=== PATIENT | female | born 1945 | race Caucasian/White ===

== ENCOUNTER 2017-05-11 10:53 | Outpatient (CLI) | payer MEDICARE, MEDICAID ==
[~2017-05-11 10:53] MED LIST: ATOR20TA66 PO; BACL10TA PO; BENA20TA2 PO; CLOP75TA18 PO; COLL30OI TP; GABA-532 PO; HYDR-3686 PO; HYDR-569 PO; LACT1CAP26 PO
== END 2017-05-11 11:49 | disposition home or self-care (01) ==
LOC: WOUND CARE 10:53 → EDSTATUS 11:00 → WOUND CARE 11:49
PROVIDERS: ATTEND Surgery
DX: T87.89 Other complications of amputation stump (principal); L98.491 Non-pressure chronic ulcer of skin of other sites limited to breakdown of skin; E11.22 Type 2 diabetes mellitus with diabetic chronic kidney disease; I13.0 Hypertensive heart and chronic kidney disease with heart failure and stage 1 through stage 4 chronic kidney disease, or unspecified chronic kidney disease; I50.9 Heart failure, unspecified; N18.4 Chronic kidney disease, stage 4 (severe); E11.42 Type 2 diabetes mellitus with diabetic polyneuropathy; E11.51 Type 2 diabetes mellitus with diabetic peripheral angiopathy without gangrene; I77.1 Stricture of artery; I25.10 Atherosclerotic heart disease of native coronary artery without angina pectoris; I70.238 Atherosclerosis of native arteries of right leg with ulceration of other part of lower leg; J44.9 Chronic obstructive pulmonary disease, unspecified; K21.9 Gastro-esophageal reflux disease without esophagitis; E78.5 Hyperlipidemia, unspecified; I25.2 Old myocardial infarction; I87.2 Venous insufficiency (chronic) (peripheral); M19.90 Unspecified osteoarthritis, unspecified site; F41.9 Anxiety disorder, unspecified; F32.9 Major depressive disorder, single episode, unspecified; F17.210 Nicotine dependence, cigarettes, uncomplicated; Z68.43 Body mass index [BMI] 50.0-59.9, adult; Z72.89 Other problems related to lifestyle; Z98.62 Peripheral vascular angioplasty status; Z86.718 Personal history of other venous thrombosis and embolism; Y83.5 Amputation of limb(s) as the cause of abnormal reaction of the patient, or of later complication, without mention of misadventure at the time of the procedure
CPT/HCPCS: 99215; A6196; A6209

== ENCOUNTER 2017-05-25 10:36 | Outpatient (CLI) | payer MEDICARE, MEDICAID | END 2017-05-25 11:28 | disposition home or self-care (01) | LOC: WOUND CARE 10:36 → EDSTATUS 11:00 → WOUND CARE 11:28 | PROVIDERS: ATTEND Surgery | DX: T87.81 Dehiscence of amputation stump (principal); L97.811 Non-pressure chronic ulcer of other part of right lower leg limited to breakdown of skin; I77.1 Stricture of artery; I25.10 Atherosclerotic heart disease of native coronary artery without angina pectoris; I70.235 Atherosclerosis of native arteries of right leg with ulceration of other part of foot; J44.9 Chronic obstructive pulmonary disease, unspecified; K21.9 Gastro-esophageal reflux disease without esophagitis; E11.22 Type 2 diabetes mellitus with diabetic chronic kidney disease; I13.0 Hypertensive heart and chronic kidney disease with heart failure and stage 1 through stage 4 chronic kidney disease, or unspecified chronic kidney disease; I50.9 Heart failure, unspecified; N18.4 Chronic kidney disease, stage 4 (severe); E78.5 Hyperlipidemia, unspecified; I25.2 Old myocardial infarction; E11.42 Type 2 diabetes mellitus with diabetic polyneuropathy; E11.51 Type 2 diabetes mellitus with diabetic peripheral angiopathy without gangrene; M19.90 Unspecified osteoarthritis, unspecified site; I87.2 Venous insufficiency (chronic) (peripheral); F41.9 Anxiety disorder, unspecified; F32.9 Major depressive disorder, single episode, unspecified; F17.210 Nicotine dependence, cigarettes, uncomplicated; Z72.89 Other problems related to lifestyle; Z98.62 Peripheral vascular angioplasty status; Z68.43 Body mass index [BMI] 50.0-59.9, adult; Z86.718 Personal history of other venous thrombosis and embolism; Y83.5 Amputation of limb(s) as the cause of abnormal reaction of the patient, or of later complication, without mention of misadventure at the time of the procedure | CPT/HCPCS: 99215; A6021; A6206; A6212 ==

== ENCOUNTER 2017-06-15 10:06 | Outpatient (CLI) | payer MEDICARE, MEDICAID ==
[~2017-06-15 10:06] MED LIST changes: -COLL30OI TP
== END 2017-06-15 11:32 | disposition home or self-care (01) ==
LOC: WOUND CARE 10:06 → EDSTATUS 10:30 → WOUND CARE 11:32
PROVIDERS: ATTEND Surgery
DX: T87.81 Dehiscence of amputation stump (principal); L97.811 Non-pressure chronic ulcer of other part of right lower leg limited to breakdown of skin; I77.1 Stricture of artery; I25.10 Atherosclerotic heart disease of native coronary artery without angina pectoris; I70.235 Atherosclerosis of native arteries of right leg with ulceration of other part of foot; J44.9 Chronic obstructive pulmonary disease, unspecified; K21.9 Gastro-esophageal reflux disease without esophagitis; E11.22 Type 2 diabetes mellitus with diabetic chronic kidney disease; I13.0 Hypertensive heart and chronic kidney disease with heart failure and stage 1 through stage 4 chronic kidney disease, or unspecified chronic kidney disease; I50.9 Heart failure, unspecified; N18.4 Chronic kidney disease, stage 4 (severe); E78.5 Hyperlipidemia, unspecified; I25.2 Old myocardial infarction; E11.42 Type 2 diabetes mellitus with diabetic polyneuropathy; E11.51 Type 2 diabetes mellitus with diabetic peripheral angiopathy without gangrene; M19.90 Unspecified osteoarthritis, unspecified site; I87.2 Venous insufficiency (chronic) (peripheral); F41.9 Anxiety disorder, unspecified; F32.9 Major depressive disorder, single episode, unspecified; F17.210 Nicotine dependence, cigarettes, uncomplicated; Z72.89 Other problems related to lifestyle; Z98.62 Peripheral vascular angioplasty status; Z68.43 Body mass index [BMI] 50.0-59.9, adult; Z86.718 Personal history of other venous thrombosis and embolism; Y83.5 Amputation of limb(s) as the cause of abnormal reaction of the patient, or of later complication, without mention of misadventure at the time of the procedure
CPT/HCPCS: 99215; A6212

== ENCOUNTER 2017-07-13 10:17 | Outpatient (CLI) | payer MEDICARE, MEDICAID | END 2017-07-13 11:10 | disposition home or self-care (01) | LOC: WOUND CARE 10:17 → EDSTATUS 10:30 → WOUND CARE 11:10 | PROVIDERS: ATTEND Surgery | DX: T87.81 Dehiscence of amputation stump (principal); L97.811 Non-pressure chronic ulcer of other part of right lower leg limited to breakdown of skin; I77.1 Stricture of artery; I25.10 Atherosclerotic heart disease of native coronary artery without angina pectoris; I70.235 Atherosclerosis of native arteries of right leg with ulceration of other part of foot; J44.9 Chronic obstructive pulmonary disease, unspecified; K21.9 Gastro-esophageal reflux disease without esophagitis; E11.22 Type 2 diabetes mellitus with diabetic chronic kidney disease; I13.0 Hypertensive heart and chronic kidney disease with heart failure and stage 1 through stage 4 chronic kidney disease, or unspecified chronic kidney disease; I50.9 Heart failure, unspecified; N18.4 Chronic kidney disease, stage 4 (severe); E78.5 Hyperlipidemia, unspecified; I25.2 Old myocardial infarction; E11.42 Type 2 diabetes mellitus with diabetic polyneuropathy; E11.51 Type 2 diabetes mellitus with diabetic peripheral angiopathy without gangrene; M19.90 Unspecified osteoarthritis, unspecified site; I87.2 Venous insufficiency (chronic) (peripheral); F41.9 Anxiety disorder, unspecified; F32.9 Major depressive disorder, single episode, unspecified; F17.210 Nicotine dependence, cigarettes, uncomplicated; Z72.89 Other problems related to lifestyle; Z98.62 Peripheral vascular angioplasty status; Z68.43 Body mass index [BMI] 50.0-59.9, adult; Z86.718 Personal history of other venous thrombosis and embolism; Y83.5 Amputation of limb(s) as the cause of abnormal reaction of the patient, or of later complication, without mention of misadventure at the time of the procedure | CPT/HCPCS: 99214 ==

== ENCOUNTER 2018-06-19 16:48 | Emergency (ER) | payer MEDICARE, MEDICAID ==
[~2018-06-19] VITALS: Ht 91.4 cm; Wt 51.4 kg
[~2018-06-19 16:48] MED LIST changes: +HYDR-4383 PO; -HYDR-569 PO
[2018-06-19 16:56] VITALS: BP 138/80
[2018-06-19 17:47] LABS: BASOPHILS # (AUTO) 0.1 X10'3 (0-0.2); BASOPHILS % (AUTO) 0.4 % (0-1); EOSINOPHILS # (AUTO) 0.4 X10'3 (0-0.9); EOSINOPHILS % (AUTO) 2.9 % (0-6); HEMATOCRIT 39.8 % (35.0-45.0); HEMOGLOBIN 13.9 g/dl (12.0-16.0); LYMPHOCYTES # (AUTO) 1.2 X10'3 (1.1-4.8); LYMPHOCYTES % (AUTO) 8.7 % (21-51); MEAN CORPUSCULAR HEMOGLOBIN 33.2 PG (27.0-31.0); MEAN PLATELET VOLUME 8.6 FL (7.4-10.4); MONOCYTES # (AUTO) 0.8 X10'3 (0-0.9); MONOCYTES % (AUTO) 6.2 % (2-12); NEUTROPHILS # (AUTO) 10.9 X10'3 (1.8-7.7); NEUTROPHILS % (AUTO) 81.8 % (42-75); PLATELET COUNT 235 X10'3 (140-440); RED CELL DISTRIBUTION WIDTH 13.1 % (11.5-14.5); WHITE BLOOD COUNT 13.4 X10'3 (4.5-11.0)
[2018-06-19 17:57] LABS: PROTHROMBIN TIME 10.3 SECONDS (9.0-12.0)
[2018-06-19 18:02] LABS: ALANINE AMINOTRANSFERASE 20 U/L (12-78); ALBUMIN 3.8 G/DL (3.4-5.0); ALBUMIN/GLOBULIN RATIO 1.1 (1.1-1.5); ALKALINE PHOSPHATASE 94 IU/L (46-116); ANION GAP 11 (8-16); ASPARTATE AMINO TRANSFERASE 10 U/L (10-37); BILIRUBIN,TOTAL 0.3 MG/DL (0.1-1.0); BLOOD UREA NITROGEN 12 MG/DL (7-18); BUN/CREATININE RATIO 11.8 (6.6-38.0); CALCIUM 9.7 MG/DL (8.5-10.1); CHLORIDE 94 MMOL/L (99-107); CREATININE 1.02 MG/DL (0.40-0.90); GLUCOSE 97 MG/DL (70-104); POTASSIUM 3.5 MMOL/L (3.5-5.1); SODIUM 130 MMOL/L (135-145); TOTAL CARBON DIOXIDE 24.7 MMOL/L (24-32); TOTAL PROTEIN 7.3 G/DL (6.4-8.2); eGFR 53 ML/MIN
--- NOTE | 2018-06-19 22:01 | NUR ---
No response from lobby after 3 attempts to room. Call tp number on file. spoke with Miri, expressed our concern for her well being, encouraged her to return for eval. miri reports she will return in the am, or sooner if worsening. Dr. Kinney informed.
== END 2018-06-19 20:05 | disposition left against medical advice (07) ==
LOC: ER 16:48
DX: R10.31 Right lower quadrant pain (principal); R10.32 Left lower quadrant pain; Z53.21 Procedure and treatment not carried out due to patient leaving prior to being seen by health care provider
CPT/HCPCS: 36415; 80053; 85025; 85610

== ENCOUNTER 2020-08-22 22:15 | Observation (INO) | payer MEDICARE, MEDICAID ==
[~2020-08-22] VITALS: Ht 157.5 cm; Wt 45.4 kg
[~2020-08-22 22:15] MED LIST changes: -CLOP75TA18 PO; +CLOP75TA80 PO
[2020-08-22 22:43] LABS: BASOPHILS # (AUTO) 0.1 X10'3 (0-0.2); BASOPHILS % (AUTO) 1.4 % (0-1); EOSINOPHILS # (AUTO) 0.9 X10'3 (0-0.9); EOSINOPHILS % (AUTO) 14.1 % (0-6); HEMATOCRIT 37.7 % (35.0-45.0); HEMOGLOBIN 13.1 g/dl (12.0-16.0); LYMPHOCYTES % (AUTO) 31.4 % (21-51); MEAN CORPUSCULAR HEMOGLOBIN 33.2 PG (27.0-31.0); MEAN CORPUSCULAR HGB CONC 34.7 g/dL (33.0-36.5); MEAN CORPUSCULAR VOLUME 95.8 FL (78-98); MEAN PLATELET VOLUME 7.8 FL (7.4-10.4); MONOCYTES # (AUTO) 0.4 X10'3 (0-0.9); MONOCYTES % (AUTO) 6.7 % (2-12); NEUTROPHILS % (AUTO) 46.4 % (42-75); PLATELET COUNT 236 X10'3 (140-440); RED BLOOD COUNT 3.93 X10'6 (4.20-5.60); RED CELL DISTRIBUTION WIDTH 12.8 % (11.5-14.5); WHITE BLOOD COUNT 6.4 X10'3 (4.5-11.0)
[2020-08-22 22:58] LABS: ALANINE AMINOTRANSFERASE 21 U/L (12-78); ALBUMIN 3.6 G/DL (3.4-5.0); ALBUMIN/GLOBULIN RATIO 1.1 (1.1-1.5); ALKALINE PHOSPHATASE 97 IU/L (46-116); ANION GAP 7 (8-16); ASPARTATE AMINO TRANSFERASE 13 U/L (10-37); BILIRUBIN,TOTAL 0.3 MG/DL (0.1-1.0); BLOOD UREA NITROGEN 14 MG/DL (7-18); BUN/CREATININE RATIO 15.6 (6.6-38.0); CALCIUM 9.7 MG/DL (8.5-10.1); CHLORIDE 98 MMOL/L (99-107); GLUCOSE 94 MG/DL (70-104); SODIUM 130 MMOL/L (135-145); TOTAL PROTEIN 6.8 G/DL (6.4-8.2); eGFR 61 ML/MIN
[2020-08-22 23:00] LABS: CLARITY,URINE CLEAR (Clear); COLOR,URINE YELLOW (Yellow); GLUCOSE, URINE NEGATIVE (Neg); KETONES,URINE NEGATIVE (Neg); LEUKOCYTE ESTERASE ,URINE TRACE (Neg); NITRITES, URINE NEGATIVE (Neg); OCCULT BLOOD,URINE NEGATIVE (Neg); PROTEIN,URINE NEGATIVE (Neg); UROBILINOGEN,URINE 0.2 E.U/dL (0.2-1.0)
[2020-08-22 23:05] LABS: UA COLLECTION TYPE NON-SPECIFIED
[2020-08-22 23:17] LABS: BACTERIA,URINE FEW /HPF (Neg); RBC,URINE NONE SEEN /HPF (0-2); SQUAMOUS EPITHELIAL CELL,UR FEW /LPF (FEW); WBC,URINE 0-4 /HPF (0-4)
--- NOTE | 2020-08-23 02:24 | NUR ---
Vasilekyung Aayush number is [phone].
[2020-08-23] MEDS ORDERED: magnesium 4gm in 100ml NS 100 ML IV PRN (02:30)
[2020-08-23] MEDS ORDERED: ondansetron/PF 4mg/2ml inj IV PRN (02:30)
[2020-08-23] MEDS ORDERED: potassium Cl 20 mEq SR tablet PO PRN ×2 (02:30)
[2020-08-23] MEDS ORDERED: acetaminophen 325mg tablet PO PRN (02:30)
[2020-08-23] MEDS ORDERED: potassium Cl 40MEQ/1/2NS 520ml 520 ML IV PRN ×2 (02:30)
[2020-08-23] MEDS ORDERED: magnesium Cl slow-release 64mg tablet PO PRN (02:30)
[2020-08-23] MEDS ORDERED: normal saline 1000ml 1,000 ML IV SCH (02:30)
[2020-08-23] MEDS ORDERED: magnesium 2GM in 50ml NS 50 ML IV PRN (02:30)
[2020-08-23] MEDS ORDERED: BENA40TA72 PO (02:40)
[2020-08-23] MEDS ORDERED: CLOT30CR19 TOP (02:40)
[2020-08-23] MEDS ORDERED: ATOR40TA72 PO (02:40)
[2020-08-23] MEDS ORDERED: ROPI2TAB7 PO (02:40)
--- NOTE | 2020-08-23 07:00 | NUR ---
pt transfered to a hospital bed from the [facility], [place]. pt states she is "feeling better."
--- NOTE | 2020-08-23 07:24 | NUR ---
spoke with the pt's daughter Tita [phone], and informed her that her mother is stable and being admitted to the hospital. she said we can call with any updates.
[2020-08-23] MEDS ORDERED: MESSAGE TO PHARMACY PO ONE (07:40)
[2020-08-23] MEDS ORDERED: dextrose ORAL solution 15 GM/59 ML bottle PO PRN ×2 (07:40)
[2020-08-23] MEDS ORDERED: insulin Lispro (HumaLOG) vial - multi-dose SQ SCH (07:40)
[2020-08-23] MEDS ORDERED: dextrose 50%-water 50ml dispensing syringe IV PRN ×2 (07:40)
[2020-08-23] MEDS ORDERED: glucagon, human recombinant 1mg kit SUBCUT PRN (07:40)
[2020-08-23] MEDS ORDERED: K and/or MAG REPLACEMENT MC SCH (08:00)
[2020-08-23 08:04] VITALS: BP 133/51
--- NOTE | 2020-08-23 09:29 | NUR ---
spoke with MD Gorman about pt's med request. he states he is going to come see the pt and possibly send her home.
--- NOTE | 2020-08-23 10:38 | NUR ---
PATIENT'S SON, OBDULIO IS HERE FOR DISCHARGE TRANSPORTATION. IV REMOVED WITH TIP INTACT. DRESSED FOR DEPARTURE AND TAKEN OUT TO VEHICLE PER WC. DC INSTRUCTIONS DISCUSSED WITH PATIENT AND SON, OBDULIO. BOTH VERBALIZED UNDERSTANDING. DEPARTED FROM ER IN GOOD CONDITION.
[2020-08-23 10:44] LABS: HEMOGLOBIN A1C 6.3 % (4.5-6.2)
[2020-08-23] MEDS ORDERED: insulin glargine (Lantus) pen - multi-dose SQ SCH (21:00)
== END 2020-08-23 10:38 | disposition home or self-care (01) ==
LOC: ER 22:16 → ED HOLD 08-23 02:27
PROVIDERS: ADMIT Internal Medicine; ATTEND Family Medicine
DX: G92 Toxic encephalopathy (principal); R41.82 Altered mental status, unspecified; J44.9 Chronic obstructive pulmonary disease, unspecified; E87.1 Hypo-osmolality and hyponatremia; G25.81 Restless legs syndrome; E11.51 Type 2 diabetes mellitus with diabetic peripheral angiopathy without gangrene; I12.9 Hypertensive chronic kidney disease with stage 1 through stage 4 chronic kidney disease, or unspecified chronic kidney disease; E11.22 Type 2 diabetes mellitus with diabetic chronic kidney disease; N18.9 Chronic kidney disease, unspecified; E78.5 Hyperlipidemia, unspecified; I25.10 Atherosclerotic heart disease of native coronary artery without angina pectoris; G89.29 Other chronic pain; M54.9 Dorsalgia, unspecified; F41.9 Anxiety disorder, unspecified; F32.9 Major depressive disorder, single episode, unspecified; K21.9 Gastro-esophageal reflux disease without esophagitis; Z86.718 Personal history of other venous thrombosis and embolism; Z89.512 Acquired absence of left leg below knee; Z89.511 Acquired absence of right leg below knee; Z89.612 Acquired absence of left leg above knee; Z89.611 Acquired absence of right leg above knee; Z79.02 Long term (current) use of antithrombotics/antiplatelets; Z79.899 Other long term (current) drug therapy
CPT/HCPCS: 36415; 70450; 71045; 80053; 81001; 83036; 83880; 85025; 87088; 93005; 96360; 96361; 99285; G0378; J7030; J1815